=== PATIENT | male | born 1970 | race Caucasian/White ===

== ENCOUNTER 2017-01-11 12:32 | Inpatient (IN) | payer BC ==
--- NOTE | ~2017-01-11 | DS ---
Discharge Summary [facility] [address] [place]. [address] NAME: ALAN HOWE : 72 STATUS : DIS IN PAT#: [id number] AGE: 46 ADM/REG DATE : 01/11/17 MR#: [id number] REPORT SERV DATE: 01/29/17 DICTATED BY: EILEEN CAMARA JR. DATE: 01/28/17 REPORT STATUS : Draft TRANSCRIBED BY: MAYTE DATE: 01/28/17 Data Collection from hospitalization DISCHARGE DIAGNOSES: 1. Right thigh abscess/ulcer. 2. Hypertension. 3. Anxiety disorder. 4. Tobacco use. 5. Chronic obstructive pulmonary disease. 6. Morbid obesity. CONSULTATIONS: None. PROCEDURES: Incision and drainage, excisional debridement of skin and subcutaneous tissue, muscle, fascia of the right posterior hip, ulcer/abscess/cellulitis, 01/11/2017. PATHOLOGY: Skin and subcutis, right thigh - abscess. DISCHARGE MEDICATIONS: Zyvox 600 mg every 12 hours, Zestril 30 mg daily, Habitrol one patch topically daily, and Percocet 5/325 one to two tablets every six hours as needed. CONDITION AT DISCHARGE: Stable. DISPOSITION: The patient was discharged home to be followed by home health care on a regular diet with activities as instructed. He will follow up with me, 01/22/2017. HOSPITAL COURSE: This is a 46-year-old man who presented with cellulitis, pain, swelling, tenderness, marked drainage, and erythema of the right leg, posterior thigh. There have been no known event that preceded symptom at onset. He was felt to have a right thigh abscess/ulcers. Treatment options were discussed, and it was elected to proceed with surgical intervention. He was admitted to the hospital at this time for further evaluation and treatment. Upon admission, he was taken to the operating room where he underwent the above-mentioned procedure. He tolerated this well. There were no complications. On postop day #1, he said he was feeling better. White blood cell count had decreased. Cultures had revealed Staph. Vancomycin was continued. His cultures had been positive for MRSA. Discharge planning was performed. His erythema was decreasing. Vancomycin was continued. On 01/14/2017, discharge instructions were given. Due to his improved and stable condition, he was discharged home to be followed by home health care with the above-stated instructions. Information collected by: Triny Burden I submit the above information as my discharge summary. JASPER/MAYTE Discharge Summary [facility] [address] [place] [address] NAME: ALAN HOWE : 72 STATUS : DIS IN PAT#: [id number] AGE: 46 ADM/REG DATE : 01/11/17 MR#: [id number] REPORT SERV DATE: 01/29/17 DICTATED BY: EILEEN CAMARA JR. DATE: 01/28/17 REPORT STATUS : Draft TRANSCRIBED BY: MAYTE DATE: 01/28/17 Eileen Camara Jr., M.D. / [id number] CC: Jesús Cerrato Jr., D.O. F.A.C.P. J. Kirk Rogers, D.O. F.A.C.P.
--- NOTE | ~2017-01-11 | OP ---
Record Of Operation [facility] [address] [place]. [address] NAME: ALAN HOWE : 72 STATUS : ADM [place] PAT#: [id number] AGE: 46 ADM/REG DATE : 01/11/17 MR#: [id number] REPORT SERV DATE: 01/11/17 DICTATED BY: EILEEN CAMARA JR. DATE: 01/11/17 REPORT STATUS : Draft TRANSCRIBED BY: MAYTE DATE: 01/11/17 DATE OF PROCEDURE: 01/11/2017 SURGEON: Eileen Camara M.D. CLOCK MECHANIC: Mayito Sagastume. PROCEDURE: 1. Incision and drainage. 2. Excisional debridement of skin, subcutaneous tissue, muscle, fascia of right posterior hip ulcer/abscess/cellulitis. POSTOPERATIVE DIAGNOSIS: ANESTHESIA: General. INDICATIONS: The patient presented with ulceration of the right posterior thigh with associated induration and abscess, incision and drainage and debridement is indicated. FINDINGS: There was an ulcer noted 3.5 x 3 x . There was surrounding erythema and induration. This ulcer was excised. Then, the cavity was opened and unroofed. There was a collection of purulence extending down to the fascia. The post debridement size of the wound was 6.5 x 5.5 x 2. Cultures were taken. This was dressed with a wound VAC with silver foam. DESCRIPTION OF PROCEDURE: With adequate general anesthesia, the patient was placed in prone position. A 15 blade was utilized to incise around the ulcer extending down to the subcutaneous tissues. Then with sharp scissors, nonviable tissue was excised and purulent tissue from the skin and subcutaneous tissue down to including a portion of fascia. The wound was irrigated with pulse lavage collar tailor. The wound was measured. Hemostasis achieved with electrocautery. Cultures were taken. Two layers of silver foam were placed with occlusive dressing and suction at -125. He tolerated the procedure well and left the operating room in satisfactory condition. BLOOD LOSS: 10 mL. KOREY/MAYTE Eileen Camara Jr., M.D. / [id number] CC: Record Of Operation [address] [place]. [address] NAME: ALAN HOWE : 72 STATUS : ADM [place]en PAT#: [id number] AGE: 46 ADM/REG DATE : 01/11/17 MR#: [id number] REPORT SERV DATE: 01/11/17 DICTATED BY: EILEEN CAMARA JR. DATE: 01/11/17 REPORT STATUS : Draft TRANSCRIBED BY: MODL DATE: 01/11/17 Jesús Cerrato Jr., D.O. F.A.C.P.
[2017-01-11 12:56] LABS: HEMATOCRIT 42.8 % (40.0-51.0); HEMOGLOBIN 14.9 g/dL (13.6-17.8); MEAN CORPUS HGB CONC 34.8 g/dL (32.0-36.0); MEAN CORPUSCULAR HEMOGLOB 31.4 pg (26.0-34.0); MEAN CORPUSCULAR VOLUME 90.3 fL (80-100); MEAN PLATELET VOLUME 8.8 fL (9.2-13.0); PLATELET COUNT 278 10/3/uL (150-400); RBC DISTRIBUTION WIDTH 13.8 % (12.0-16.0); RED CELL COUNT 4.74 10/6/uL (4.7-6.1); WHITE BLOOD CELLS 18.8 10/3/uL (4.5-10.5)
[2017-01-11 13:13] LABS: BUN (BLOOD UREA NITROGEN) 11 MG/DL (6-23); CHLORIDE, SERUM 103 MMOL/L (96-112); CO2 (CARBON DIOXIDE) 28 MMOL/L (24-34); CREATININE 1.01 MG/DL (0.70-1.30); GFR AFRICAN AMERICAN 104 ML/MIN (>=60); GFR NON AFRICAN AMERICAN 89 ML/MIN (>=60); GLUCOSE, SERUM 96 MG/DL (60-99); POTASSIUM, SERUM 4.1 MMOL/L (3.5-5.3); PREALBUMIN 18.1 MG/DL (17.0-43.0); SODIUM, SERUM 138 MMOL/L (135-148)
[2017-01-11] MEDS ORDERED: ZESTRIL30 MG PO (13:58)
[2017-01-12 07:05] LABS: BASOPHILS 0.2 %; BASOPHILS ABSOLUTE 0.03 10/3/uL (0.0-0.16); EOSINOPHILS 1.3 %; EOSINOPHILS ABSOLUTE 0.18 10/3/uL (0.0-0.53); HEMATOCRIT 39.7 % (40.0-51.0); IMMATURE GRANULOCYTES 0.4 %; IMMATURE GRANULOCYTES ABSOLUTE 0.06 10/3/uL (0.0-0.11); LYMPHOCYTES 21.6 %; LYMPHOCYTES ABSOLUTE 3.06 10/3/uL (0.67-4.30); MEAN CORPUSCULAR HEMOGLOB 30.4 pg (26.0-34.0); MEAN CORPUSCULAR VOLUME 92.8 fL (80-100); MEAN PLATELET VOLUME 9.1 fL (9.2-13.0); MONOCYTES 10.1 %; MONOCYTES ABSOLUTE 1.43 10/3/uL (0.21-1.20); NEUTROPHILS 66.4 %; NEUTROPHILS ABSOLUTE 9.43 10/3/uL (2.02-8.40); PLATELET COUNT 272 10/3/uL (150-400); RED CELL COUNT 4.28 10/6/uL (4.7-6.1); WHITE BLOOD CELLS 14.2 10/3/uL (4.5-10.5)
[2017-01-12 07:06] LABS: MEAN CORPUS HGB CONC 32.7 g/dL (32.0-36.0)
[2017-01-12 07:07] LABS: MANUAL DIFF NO %
[2017-01-12 07:16] LABS: BUN (BLOOD UREA NITROGEN) 10 MG/DL (6-23); CALCIUM, SERUM 8.5 MG/DL (8.5-10.4); CHLORIDE, SERUM 104 MMOL/L (96-112); CO2 (CARBON DIOXIDE) 30 MMOL/L (24-34); CREATININE 0.92 MG/DL (0.70-1.30); GFR AFRICAN AMERICAN 116 ML/MIN (>=60); GFR NON AFRICAN AMERICAN 100 ML/MIN (>=60); GLUCOSE, SERUM 108 MG/DL (60-99); POTASSIUM, SERUM 4.3 MMOL/L (3.5-5.3); SODIUM, SERUM 137 MMOL/L (135-148)
[2017-01-13 05:41] LABS: BASOPHILS 0.3 %; BASOPHILS ABSOLUTE 0.04 10/3/uL (0.0-0.16); EOSINOPHILS 1.5 %; EOSINOPHILS ABSOLUTE 0.18 10/3/uL (0.0-0.53); HEMATOCRIT 41.6 % (40.0-51.0); HEMOGLOBIN 14.1 g/dL (13.6-17.8); IMMATURE GRANULOCYTES 0.5 %; IMMATURE GRANULOCYTES ABSOLUTE 0.06 10/3/uL (0.0-0.11); LYMPHOCYTES 26.3 %; LYMPHOCYTES ABSOLUTE 3.06 10/3/uL (0.67-4.30); MEAN CORPUS HGB CONC 33.9 g/dL (32.0-36.0); MEAN CORPUSCULAR HEMOGLOB 30.8 pg (26.0-34.0); MEAN CORPUSCULAR VOLUME 90.8 fL (80-100); MEAN PLATELET VOLUME 9.1 fL (9.2-13.0); MONOCYTES ABSOLUTE 1.51 10/3/uL (0.21-1.20); NEUTROPHILS 58.4 %; PLATELET COUNT 274 10/3/uL (150-400); RBC DISTRIBUTION WIDTH 13.8 % (12.0-16.0); RED CELL COUNT 4.58 10/6/uL (4.7-6.1); WHITE BLOOD CELLS 11.7 10/3/uL (4.5-10.5)
[2017-01-13 05:54] LABS: BUN (BLOOD UREA NITROGEN) 10 MG/DL (6-23); CALCIUM, SERUM 8.6 MG/DL (8.5-10.4); CHLORIDE, SERUM 104 MMOL/L (96-112); CREATININE 0.75 MG/DL (0.70-1.30); GFR AFRICAN AMERICAN 128 ML/MIN (>=60); GFR NON AFRICAN AMERICAN 111 ML/MIN (>=60); GLUCOSE, SERUM 106 MG/DL (60-99); SODIUM, SERUM 139 MMOL/L (135-148); VANCOMYCIN TROUGH 4.9 MCG/ML (10.0-20.0)
[2017-01-13 05:55] LABS: CO2 (CARBON DIOXIDE) 25 MMOL/L (24-34); MANUAL DIFF NO %
[2017-01-14] MEDS ORDERED: PCET PO (09:27)
[2017-01-14] MEDS ORDERED: HABIT21 TOP (09:27)
[2017-01-14] MEDS ORDERED: ZYVOXPO PO (09:27)
== END 2017-01-14 21:00 | disposition home health service (06) | DRG 572 ==
LOC: SDC 12:32 → SDC/OF 18:08 → 5SO 19:08
PROVIDERS: Specialist
PROC: 0JBL0ZZ Excision of Right Upper Leg Subcutaneous Tissue and Fascia, Open Approach (ICD-10-PCS; principal; 2017-01-11 16:15)
DX: L02.415 Cutaneous abscess of right lower limb (principal); E66.01 Morbid (severe) obesity due to excess calories; Z79.899 Other long term (current) drug therapy; Z88.6 Allergy status to analgesic agent; B95.62 Methicillin resistant Staphylococcus aureus infection as the cause of diseases classified elsewhere; F17.210 Nicotine dependence, cigarettes, uncomplicated; J44.9 Chronic obstructive pulmonary disease, unspecified; Z68.33 Body mass index [BMI] 33.0-33.9, adult; F41.9 Anxiety disorder, unspecified
CPT/HCPCS: 80048; 80202; 83735; 84134; 85025; 85027; 87015; 87070; 87075; 87077; 87102; 87116; 87186; 87205; 88304; A9270-GY; J0330; J2250; J2270; J2405; J2543; J2710; J3010; J3370